=== PATIENT | male | born 1980 | race Caucasian/White ===

== ENCOUNTER → 2020-07-11 13:33 | Outpatient (BNVA) | payer MEDICARE, MEDICAID, SELFPAY | PROVIDERS: Family Provider Nurse Practitioner; PCP Nurse Practitioner; Visit Provider Nurse Practitioner | DX: E78.2 Mixed hyperlipidemia (principal); Z11.3 Encounter for screening for infections with a predominantly sexual mode of transmission; F02.80 Dementia in other diseases classified elsewhere, unspecified severity, without behavioral disturbance, psychotic disturbance, mood disturbance, and anxiety; Z11.1 Encounter for screening for respiratory tuberculosis | CPT/HCPCS: 80053; 80061; 80164; 81000; 85025; 86592 ==

== ENCOUNTER → 2021-01-19 13:32 | Outpatient (BNVA) | payer MEDICARE, MEDICAID, SELFPAY | PROVIDERS: Family Provider Nurse Practitioner; PCP Nurse Practitioner; Visit Provider Nurse Practitioner | DX: E78.2 Mixed hyperlipidemia (principal); J30.89 Other allergic rhinitis; Z79.899 Other long term (current) drug therapy | CPT/HCPCS: 80053; 80061 ==

== ENCOUNTER → 2021-07-17 13:26 | Outpatient (BNVA) | payer MEDICARE, MEDICAID, SELFPAY | PROVIDERS: Family Provider Nurse Practitioner; PCP Nurse Practitioner; Visit Provider Nurse Practitioner | DX: E78.2 Mixed hyperlipidemia (principal); Z11.3 Encounter for screening for infections with a predominantly sexual mode of transmission | CPT/HCPCS: 80053; 80061; 81000; 83721; 85025; 86580; 86592 ==

== ENCOUNTER → 2021-08-16 10:29 | Outpatient (BNVA) | payer MEDICARE, MEDICAID, SELFPAY | PROVIDERS: Family Provider Nurse Practitioner; PCP Nurse Practitioner; Visit Provider Nurse Practitioner | DX: D72.829 Elevated white blood cell count, unspecified (principal) | CPT/HCPCS: 85025 ==

== ENCOUNTER → 2022-02-14 10:48 | Outpatient (BNVA) | payer MEDICARE, MEDICAID, SELFPAY | PROVIDERS: Family Provider Nurse Practitioner; PCP Nurse Practitioner; Visit Provider Nurse Practitioner | DX: E78.2 Mixed hyperlipidemia (principal); M79.10 Myalgia, unspecified site; K52.9 Noninfective gastroenteritis and colitis, unspecified; G20 Parkinson's disease; S06.9X9S Unspecified intracranial injury with loss of consciousness of unspecified duration, sequela; F02.80 Dementia in other diseases classified elsewhere, unspecified severity, without behavioral disturbance, psychotic disturbance, mood disturbance, and anxiety; E72.20 Disorder of urea cycle metabolism, unspecified; J30.89 Other allergic rhinitis; R23.8 Other skin changes | CPT/HCPCS: 80053; 80061; 84443 ==

== ENCOUNTER 2022-02-27 13:14 | Outpatient (CLI) | payer MEDICARE, MEDICAID, SELFPAY ==
[2022-02-27 13:58] LABS: Estmated Average Glucose 91; Hemoglobin A1C 4.8 % (4.0-6.0)
[2022-02-27 14:02] LABS: Ammonia 74 umol/L (16-60)
== END 2022-02-27 13:15 | disposition home or self-care (01) ==
PROVIDERS: PCP Nurse Practitioner; Visit Provider Nurse Practitioner
DX: E72.20 Disorder of urea cycle metabolism, unspecified (principal); R73.9 Hyperglycemia, unspecified
CPT/HCPCS: 36415; 82140; 83036

== ENCOUNTER → 2022-07-16 13:38 | Outpatient (BNVA) | payer MEDICARE, MEDICAID, SELFPAY | PROVIDERS: PCP Nurse Practitioner; Visit Provider Nurse Practitioner | DX: G20 Parkinson's disease (principal); S06.9X9S Unspecified intracranial injury with loss of consciousness of unspecified duration, sequela; F02.80 Dementia in other diseases classified elsewhere, unspecified severity, without behavioral disturbance, psychotic disturbance, mood disturbance, and anxiety; E78.2 Mixed hyperlipidemia; E72.20 Disorder of urea cycle metabolism, unspecified; R46.89 Other symptoms and signs involving appearance and behavior; J30.89 Other allergic rhinitis; Z11.1 Encounter for screening for respiratory tuberculosis | CPT/HCPCS: 80053; 80061; 80164; 83721 ==

== ENCOUNTER 2022-07-27 10:34 | Outpatient (CLI) | payer MEDICARE, MEDICAID, SELFPAY ==
[2022-07-27 11:12] LABS: Ammonia 116 umol/L (16-60)
== END 2022-07-27 10:35 | disposition home or self-care (01) ==
LOC: LAB 10:36
PROVIDERS: PCP Nurse Practitioner; Visit Provider Nurse Practitioner
DX: R79.89 Other specified abnormal findings of blood chemistry (principal)
CPT/HCPCS: 36415; 82140

== ENCOUNTER 2022-10-17 14:12 | Outpatient (CLI) | payer MEDICARE, MEDICAID, SELFPAY ==
[2022-10-17 14:47] LABS: Ammonia 74 umol/L (16-60)
== END 2022-10-17 14:13 | disposition home or self-care (01) ==
LOC: LAB 14:16
PROVIDERS: PCP Nurse Practitioner; Visit Provider Nurse Practitioner
DX: E72.20 Disorder of urea cycle metabolism, unspecified (principal)
CPT/HCPCS: 36415; 82140

== ENCOUNTER 2023-01-03 15:22 | Outpatient (CLI) | payer MEDICARE, MEDICAID, SELFPAY ==
[2023-01-03 16:18] LABS: Basophils % 0.5 %; Eosinophils # 0.1 10^3/uL (0.0-0.8); Eosinophils % 1.6 %; Hematocrit 44.2 % (42.0-52.0); Hemoglobin 14.8 g/dL (11.7-16.6); Lymphocytes # 2.7 10^3/uL (0.8-4.8); Lymphocytes % 41.7 %; Mean Corpuscular HGB Conc 33.5 g/dL (30.0-36.0); Mean Corpuscular Hemoglobin 32.2 pg (28.0-34.0); Mean Corpuscular Volume 96.1 fl (80-94); Mean Platelet Volume 11.7 fL (7.4-10.4); Monocytes # 0.5 10^3/uL (0.2-0.9); Monocytes % 7.1 %; Neutrophils # 3.15 10^3/uL (1.8-7.7); Neutrophils % 48.8 %; Nucleated Red Blood Cells % 0 %; Platelet Count 191 10^3/cmm (130-400); White Blood Count 6.5 10^3/uL (4.0-10.0)
[2023-01-03 16:26] LABS: Ammonia 70 umol/L (16-60)
[2023-01-03 16:27] LABS: Alanine Aminotransferase 13 U/L (0-41); Albumin Level 4.5 g/dL (3.5-5.2); Alkaline Phosphatase 54 U/L (40-130); Anion Gap 12.5 (5-19); Aspartate Amino Transferase 25 U/L (0-40); Blood Urea Nitrogen 6 mg/dL (6-20); Calcium 9.5 mg/dL (8.5-10.5); Carbon Dioxide 27 mmol/L (22-29); Chloride 104 mmol/L (98-107); Cholesterol 204 mg/dL (0-200); Globulin 2.3 g/dL (1.3-4.6); Glomerular Filtration Rate 93.5 mL/min (90-130); Glucose 79 mg/dL (65-115); HDL Cholesterol 15 mg/dL (60-100); LDL Cholesterol Calculated 122 mg/dL (50-129); Osmolality Calculated 285 mOsm/kg (285-295); Potassium 4.5 mmol/L (3.5-5.1); Sodium 139 mmol/L (136-145); Total Bilirubin 0.3 mg/dL (0.15-1.2); Total Protein 6.8 g/dL (6.6-8.7); Triglycerides 334 mg/dL (0-150); VLDL Cholestrol Calculation 67 mg/dL (0-30)
[2023-01-03 17:59] LABS: Valproic Acid Level 68.5 ug/mL (50-100)
== END 2023-01-03 15:23 | disposition home or self-care (01) ==
PROVIDERS: PCP Nurse Practitioner; Visit Provider Nurse Practitioner
DX: E78.2 Mixed hyperlipidemia (principal); E72.20 Disorder of urea cycle metabolism, unspecified; R46.89 Other symptoms and signs involving appearance and behavior
CPT/HCPCS: 36415; 80053; 80061; 80164; 82140; 85025

== ENCOUNTER → 2023-05-23 15:25 | Outpatient (BNVA) | payer MEDICARE, MEDICAID, SELFPAY | PROVIDERS: PCP Nurse Practitioner; Visit Provider Emergency Medicine | DX: M79.641 Pain in right hand (principal) | CPT/HCPCS: 73130 ==

== ENCOUNTER 2023-05-23 16:29 | Emergency (ER) | payer MEDICARE, MEDICAID, SELFPAY ==
[2023-05-23 16:55] VITALS: BP 148/93; PULSE 86; RESP 16; TEMP 36.7; O2SAT 98; BMI 27.2
--- NOTE | 2023-05-23 17:41 | ED_ITS ---
HPI - Extremity Problem General: Chief complaint: Extremity Injury, Upper Stated complaint: right hand pain Time Seen by Provider: 05/23/23 17:39 History of Present Illness: 43-year-old male patient comes in for subluxation of the index finger of the proximal phalanx at the MCP joint of the right hand. Patient had tripped and fell caught himself with outstretched arm. Patient was seen at urgent care and was referred to the ER for reduction of the joint. Cap refill is intact. 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 Review of Systems General: Reports: 10 or more systems reviewed and unremarkable except in HPI and below Musc: Reports: extremity pain and extremity swelling PFSH ED PFSH: Medical History Aggressive behavior Current smoker Environmental and seasonal allergies Major neurocognitive disorder due to traumatic brain injury Mixed hyperlipidemia Parkinson disease Serum ammonia increased Surgical History Hx of reduction of open fracture Left arm 2000 Family History Other Dementia Diabetes Denies family history of Cancer Hypertension Social History Smoking and tobacco/nicotine status: current every day tobacco/nicotine user Second hand smoke exposure: Yes Alcohol intake: former Substance/Drug Use: former Adopted: No Caregiver/support person: Yes Lives independently: No Household members: caregiver Housing: House Marital status: Single Number of children: 1 Number of grandchildren: 0 service: No Current occupational status: disabled Do you think of yourself as: Straight/Heterosexual Current gender identity: Male Financial difficulty paying for basics: Not Very Hard Physical Exam Const: COMMON NORMALS: alert HENMT: COMMON NORMALS: normocephalic HEAD & SCALP: normocephalic THROAT: posterior oropharynx normal Neck/C-Spine: COMMON NORMALS: full ROM Resp: COMMON NORMALS: normal respiratory effort and clear to auscultation bi laterally AUSCULTATION: clear to auscultation bilaterally Cardio: COMMON NORMALS: regular rate and regular rhythm RATE: regular rate RHYTHM: regular rhythm Extremity: RIGHT UPPER EXTREMITY: Yes hand & digits (Subluxed proximal phalanx index finger MCP joint) Right hand and digits: Yes inspection, Yes palpation, Yes ROM exam and Yes neurovascular exam Neuro: SENSORIUM/ORIENTATION: Yes alert Skin: COMMON NORMALS: turgor normal GENERAL SKIN EXAM: turgor normal Procedures Nerve Block Nerve Block 1: Local Anesthetic: lidocaine 1% and with epi Amount of anesthesia used (mL): 6 Side: right Nerve Blocks: digital Procedure Successful: Yes Patient Tolerated Procedure: well Complications: none Orthopedic Joint Reduction Joint #1: Side: right Joint Reduction Location: other (mcp index finger, proximal phalanx) Analgesia: nerve block Local Anesthesia: lidocaine 1% and with epi Amount of anesthesic used (mL): 6 Technique used: traction/counter-traction and direct manipulation Post-reduction neuro exam: intact Post-reduction vascular: intact Post Reduction X-Ray Obtained: Yes Post Reduction X-Ray Results: reduced Patient Tolerated Procedure: well Additional Comments: After my failed attempt to reduce the joint, I requested Dr. Liz to assist and we were able to reduce the joint showing reduction in the post x-ray. Course Vital Signs: Vital signs: Vital Signs Temperature 98.0 F 05/23/23 16:55 Pulse Rate 86 05/23/23 16:55 Respiratory Rate 16 05/23/23 16:55 Blood Pressure 148/93 05/23/23 16:55 Pulse Oximetry 98 05/23/23 16:55 Oxygen Delivery Me thod Room Air 05/23/23 16:55 MDM - Extremity (Nontraumatic) Medical Decision Making 43-year-old male patient comes in today for complaints of of subluxation of a proximal phalanx and MCP joint of the right hand index finger. On exam patient had prompt capillary refill and sensation distally. Review of the record noted a x-ray that showed subluxation of the MCP joint right index finger. Differential diagnosis includes fracture, chronic subluxation versus acute subluxation, sprain, contusion. Under digital block subluxation was reduced to normal alignment. Dr. Liz was consulted to assist with the reduction. Lab Data Radiology Impressions Hand X-Ray 05/23/23 18:13 IMPRESSION: Successful reduction of the dislocation at the 2nd MCP. All radiology interpretation(s) finalized by discharge Discharge Plan Discharge Patient Disposition: Home Clinical Impression: Subluxation of right index finger Qualifiers: Encounter type: initial encounter Qualified Code(s): S63.200A - Unspecified subluxation of right index finger, initial encounter Condition: Stable Prescriptions: No Action acetaminophen [Tylenol] 325 mg tablet 325 mg PO Q4H Qty: 30 5RF Rx Instructions: as needed for pain or fever>100.0. Pepto-Bismol 262 mg tablet 524 mg PO QID PRN (Reason: diarrhea) Qty: 30 5RF carbidopa-levodopa [Sinemet] 25-100 mg tablet 1 tab PO BID Qty: 60 5RF Robitussin Cough-Chest Frandy DM 5-100 mg/5 mL liquid 10 ml PO Q6H PRN (Reason: cough) Qty: 118 5RF divalproex [Depakote ER] 500 mg tablet extended release 24 hr 1,500 mg PO .at bedtime Qty: 90 5RF ibuprofen 600 mg tablet 600 mg PO Q6H Qty: 30 5RF Rx Instructions: as needed for pain loratadine 10 mg tablet 10 mg PO DAILY Qty: 30 5RF mometasone 50 mcg/actuation spray,non-aerosol 2 spray intranasal DAILY PRN (Reason: allergy symptoms) Qty: 17 5RF Rx Instructions: administer into each nostril Triple Antibiotic 3.5mg-400 unit- 5,000 unit/gram ointment 1 applic topical TID PRN (Reason: skin irritation) Qty: 14 5RF sertraline [Zoloft] 100 mg tablet 100 mg PO DAILY Qty: 30 5RF olanzapine [Zyprexa] 5 mg tablet 5 mg PO .at bedtime Qty: 30 5RF fenofibrate nanocrystallized [Tricor] 145 mg tablet 145 mg PO DAILY Qty: 30 5RF L-Carnitine 500 mg tablet 500 mg PO DAILY Qty: 30 5RF Rx Instructions: must administer with a meal/food lactulose 10 gram/15 mL solution 40 g PO BID 30 Days Qty: 3600 2RF trazodone 150 mg tablet 150 mg PO .hs Qty: 30 1RF Discharge Orders: Discharge ED (Routine); Ordered 05/23/23 Ordered By: Philippe Thomas Referrals: Jamilah Garcia, HOSPICE MASSAGE THERAPIST[facility] [Primary Care Provider] - Discharge Diet: Usual diet Discharge Activity: Increase activity as tolerated Patient Instructions: Finger Dislocation (ED) Activity Restrictions/Additional Instructions: Follow-up as needed. Coding Level of Care Code ED Siding Installer for Stephon Munson
--- NOTE | 2023-05-23 17:49 | XRR_ITS ---
PROCEDURE INFORMATION: Exam: XR Right Hand Exam date and time: 05/23/2023 5:52 PM Age: 43 years old Clinical indication: Injury or trauma; Fall; Other: Bruised; Additional info: Post reduction mcp 2nd digit TECHNIQUE: Imaging protocol: Radiologic exam of the right hand. Views: 3 or more views. COMPARISON: No relevant prior studies available. FINDINGS: Bones/joints: Persistent dislocation of the 2nd digit at the MCP joint. Soft tissues: Normal. XR/XR hand RT min 3V* [id number] IMPRESSION: Persistent dislocation of the 2nd digit at the MCP joint.
--- NOTE | 2023-05-23 18:13 | XRR_ITS ---
PROCEDURE INFORMATION: Exam: XR Right Hand Exam date and time: 05/23/2023 6:50 PM Age: 43 years old Clinical indication: Injury or trauma; Fall; Other: Post reduction TECHNIQUE: Imaging protocol: Radiologic exam of the right hand. Views: 1 or 2 views. COMPARISON: CR ( EX, ) 05/23/2023 5:52 PM FINDINGS: Bones/joints: Successful reduction of the dislocation at the 2nd MCP. Soft tissues: Normal. XR/XR hand RT 2V [id number] IMPRESSION: Successful reduction of the dislocation at the 2nd MCP.
== END 2023-05-23 19:01 | disposition home or self-care (01) ==
PROVIDERS: Emergency Provider Nurse Practitioner Family; PCP Nurse Practitioner
DX: S63.200A Unspecified subluxation of right index finger, initial encounter (principal); F17.210 Nicotine dependence, cigarettes, uncomplicated; E78.2 Mixed hyperlipidemia; W01.0XXA Fall on same level from slipping, tripping and stumbling without subsequent striking against object, initial encounter; M79.641 Pain in right hand
CPT/HCPCS: 26700; 73120; 73130; 99284

== ENCOUNTER 2023-06-26 16:06 | Outpatient (CLI) | payer MEDICARE, MEDICAID, SELFPAY ==
[2023-06-26 16:31] LABS: Add Urine Microscopic? NO; Charge for UA Resulting for Rev
[2023-06-26 16:37] LABS: Bilirubin Urine Neg (Negative); Blood Urine Neg (Negative); Glucose Urine UA Norm (Normal); Ketones Urine 1+ (Negative); Leukocyte Esterase Urine Negative (Negative); Nitrate Urine Negative (Negative); Protein Urine Neg (Negative); Urine Appearance Clear (CLEAR); Urine Color Yellow (Yellow); Urobilinogen Urine Norm (Negative); pH Urine 6 (5-7)
[2023-06-26 16:45] LABS: Basophils % 0.5 %; Eosinophils # 0.1 10^3/uL (0.0-0.8); Eosinophils % 0.8 %; Hematocrit 45.6 % (37-53); Lymphocytes # 3.4 10^3/uL (0.8-4.8); Lymphocytes % 39.9 %; Mean Corpuscular HGB Conc 33.3 g/dL (30-55); Mean Corpuscular Hemoglobin 31.5 pg (27-33); Mean Corpuscular Volume 94.6 fl (82-101); Mean Platelet Volume 11.1 fL (7.4-10.4); Monocytes # 0.6 10^3/uL (0.2-0.9); Monocytes % 7.2 %; Neutrophils # 4.35 10^3/uL (1.8-7.7); Neutrophils % 51.2 %; Nucleated Red Blood Cells % 0 %; Platelet Count 199 10^3/cmm (157-399); Red Blood Count 4.82 10^6/uL (3.85-5.65); Red Cell Distribution Width 12.3 % (12.1-15.1); White Blood Count 8.49 10^3/uL (3.29-11.43)
[2023-06-26 16:58] LABS: Ammonia 48 umol/L (16-60)
[2023-06-26 16:59] LABS: Valproic Acid Level 64.8 ug/mL (50-100)
[2023-06-26 17:17] LABS: Alanine Aminotransferase 29 U/L (0-41); Albumin Level 4.7 g/dL (3.5-5.2); Alkaline Phosphatase 57 U/L (40-130); Anion Gap 13.4 (5-19); Aspartate Amino Transferase 27 U/L (0-40); Blood Urea Nitrogen 11 mg/dL (6-20); Calcium 9.6 mg/dL (8.5-10.5); Carbon Dioxide 28 mmol/L (22-29); Chloride 103 mmol/L (98-107); Chol HDL Ratio 11.09 mg/dL (1.0-5.00); Cholesterol 244 mg/dL (0-200); Globulin 2.6 g/dL (1.3-4.6); Glucose 73 mg/dL (65-115); HDL Cholesterol 22 mg/dL (60-100); Osmolality Calculated 288 mOsm/kg (285-295); Potassium 4.4 mmol/L (3.5-5.1); Sodium 140 mmol/L (136-145); Thyroid Stimulating Hormone 2.48 uIU/mL (0.27-4.20); Total Bilirubin 0.2 mg/dL (0.15-1.2); Total Protein 7.3 g/dL (6.6-8.7); Triglycerides 465 mg/dL (0-150); VLDL Cholestrol Calculation 93 mg/dL (0-30)
[2023-06-26 19:00] LABS: LDL Cholesterol Direct 156 mg/dL (0-100)
== END 2023-06-26 16:07 | disposition home or self-care (01) ==
LOC: LAB 16:10
PROVIDERS: PCP Nurse Practitioner; Visit Provider Nurse Practitioner
DX: E72.20 Disorder of urea cycle metabolism, unspecified (principal); E78.2 Mixed hyperlipidemia; G20.A1 Parkinson's disease without dyskinesia, without mention of fluctuations
CPT/HCPCS: 36415; 80053; 80061; 80164; 81003; 82140; 83721; 84443; 85025

== ENCOUNTER 2023-12-13 09:07 | Outpatient (CLI) | payer MEDICARE, MEDICAID, SELFPAY ==
[2023-12-13 09:38] LABS: Ammonia 76 umol/L (16-60)
[2023-12-13 09:39] LABS: Alanine Aminotransferase 23 U/L (0-41); Albumin Level 4.5 g/dL (3.5-5.2); Alkaline Phosphatase 51 U/L (40-130); Anion Gap 13.9 (5-19); Aspartate Amino Transferase 19 U/L (0-40); Blood Urea Nitrogen 7 mg/dL (6-20); Calcium 9.3 mg/dL (8.5-10.5); Carbon Dioxide 28 mmol/L (22-29); Chloride 104 mmol/L (98-107); Chol HDL Ratio 8.91 mg/dL (1.0-5.00); Cholesterol 205 mg/dL (0-200); Globulin 2.8 g/dL (1.3-4.6); Glomerular Filtration Rate 82.3 mL/min (90-130); Glucose 116 mg/dL (65-115); HDL Cholesterol 23 mg/dL (60-100); LDL Cholesterol Calculated 123 mg/dL (50-129); Osmolality Calculated 293 mOsm/kg (285-295); Potassium 3.9 mmol/L (3.5-5.1); Sodium 142 mmol/L (136-145); Total Bilirubin 0.2 mg/dL (0.15-1.2); Total Protein 7.3 g/dL (6.6-8.7); Triglycerides 295 mg/dL (0-150); VLDL Cholestrol Calculation 59 mg/dL (0-30)
== END 2023-12-13 09:08 | disposition home or self-care (01) ==
LOC: LAB 09:07
PROVIDERS: PCP Nurse Practitioner; Visit Provider Nurse Practitioner
DX: E78.2 Mixed hyperlipidemia (principal); E72.20 Disorder of urea cycle metabolism, unspecified
CPT/HCPCS: 80053; 80061; 82140

== ENCOUNTER 2024-06-01 13:47 | Outpatient (CLI) | payer MEDICARE, MEDICAID, SELFPAY ==
[2024-06-01 14:17] LABS: Basophils % 0.4 %; Eosinophils # 0.1 10^3/uL (0.0-0.8); Eosinophils % 1.6 %; Hematocrit 46.7 % (37-53); Lymphocytes # 3.7 10^3/uL (0.8-4.8); Lymphocytes % 52.8 %; Mean Corpuscular Hemoglobin 30.3 pg (27-33); Mean Corpuscular Volume 91.7 fl (82-101); Mean Platelet Volume 11.2 fL (7.4-10.4); Monocytes # 0.4 10^3/uL (0.2-0.9); Monocytes % 5.8 %; Neutrophils # 2.71 10^3/uL (1.8-7.7); Neutrophils % 38.7 %; Nucleated Red Blood Cells % 0 %; Platelet Count 230 10^3/cmm (157-399); Red Blood Count 5.09 10^6/uL (3.85-5.65); Red Cell Distribution Width 12.7 % (12.1-15.1); White Blood Count 7.02 10^3/uL (3.29-11.43)
[2024-06-01 14:40] LABS: Estmated Average Glucose 97
[2024-06-01 14:42] LABS: Ammonia 76 umol/L (16-60)
[2024-06-01 14:47] LABS: Alanine Aminotransferase 17 U/L (0-41); Albumin Level 4.8 g/dL (3.5-5.2); Alkaline Phosphatase 56 U/L (40-130); Anion Gap 15.3 (5-19); Aspartate Amino Transferase 27 U/L (0-40); Blood Urea Nitrogen 11 mg/dL (6-20); Calcium 9.5 mg/dL (8.5-10.5); Carbon Dioxide 26 mmol/L (22-29); Chloride 107 mmol/L (98-107); Chol HDL Ratio 18.69 mg/dL (1.0-5.00); Cholesterol 243 mg/dL (0-200); Globulin 2.7 g/dL (1.3-4.6); Glomerular Filtration Rate 81.9 mL/min (90-130); Glucose 105 mg/dL (65-115); HDL Cholesterol 13 mg/dL (60-100); Osmolality Calculated 298 mOsm/kg (285-295); Potassium 4.3 mmol/L (3.5-5.1); Sodium 144 mmol/L (136-145); Thyroid Stimulating Hormone 2.64 uIU/mL (0.27-4.20); Total Bilirubin 0.3 mg/dL (0.15-1.2); Total Protein 7.5 g/dL (6.6-8.7); Triglycerides 429 mg/dL (0-150); VLDL Cholestrol Calculation 86 mg/dL (0-30)
[2024-06-01 15:18] LABS: LDL Cholesterol Direct 166 mg/dL (0-100)
== END 2024-06-01 13:48 | disposition home or self-care (01) ==
LOC: LAB 13:49
PROVIDERS: PCP Nurse Practitioner; Visit Provider Nurse Practitioner
DX: E78.2 Mixed hyperlipidemia (principal); R73.9 Hyperglycemia, unspecified; E72.20 Disorder of urea cycle metabolism, unspecified
CPT/HCPCS: 36415; 80053; 80061; 82140; 83036; 83721; 84443; 85025

== ENCOUNTER 2024-10-30 14:31 | Outpatient (CLI) | payer MEDICARE, MEDICAID, SELFPAY ==
[2024-10-30 14:58] LABS: Basophils # 0.1 10^3/uL (0.0-0.1); Basophils % 0.8 %; Eosinophils # 0.1 10^3/uL (0.0-0.8); Eosinophils % 0.8 %; Hematocrit 44.2 % (37-53); Lymphocytes # 2.8 10^3/uL (0.8-4.8); Lymphocytes % 37.2 %; Mean Corpuscular HGB Conc 33.7 g/dL (30-55); Mean Corpuscular Hemoglobin 30.9 pg (27-33); Mean Corpuscular Volume 91.7 fl (82-101); Mean Platelet Volume 11.7 fL (7.4-10.4); Monocytes # 0.5 10^3/uL (0.2-0.9); Neutrophils # 4.19 10^3/uL (1.8-7.7); Neutrophils % 54.9 %; Nucleated Red Blood Cells % 0 %; Platelet Count 186 10^3/cmm (157-399); Red Blood Count 4.82 10^6/uL (3.85-5.65); Red Cell Distribution Width 12.8 % (12.1-15.1); White Blood Count 7.63 10^3/uL (3.29-11.43)
[2024-10-30 15:14] LABS: Ammonia 58 umol/L (16-60)
[2024-10-30 15:30] LABS: Alanine Aminotransferase 44 U/L (0-41); Albumin Level 4.6 g/dL (3.5-5.2); Alkaline Phosphatase 49 U/L (40-130); Anion Gap 15.3 (5-19); Aspartate Amino Transferase 39 U/L (0-40); Blood Urea Nitrogen 8 mg/dL (6-20); Carbon Dioxide 26 mmol/L (22-29); Chloride 102 mmol/L (98-107); Chol HDL Ratio 7.15 mg/dL (1.0-5.00); Cholesterol 193 mg/dL (0-200); Globulin 2.7 g/dL (1.3-4.6); Glomerular Filtration Rate 81.9 mL/min (90-130); Glucose 106 mg/dL (65-115); HDL Cholesterol 27 mg/dL (60-100); LDL Cholesterol Calculated 115 mg/dL (50-129); Osmolality Calculated 287 mOsm/kg (285-295); Potassium 4.3 mmol/L (3.5-5.1); Sodium 139 mmol/L (136-145); Thyroid Stimulating Hormone 1.65 uIU/mL (0.27-4.20); Total Bilirubin 0.3 mg/dL (0.15-1.2); Total Protein 7.3 g/dL (6.6-8.7); Triglycerides 257 mg/dL (0-150); VLDL Cholestrol Calculation 51 mg/dL (0-30)
== END 2024-10-30 14:32 | disposition home or self-care (01) ==
LOC: LAB 14:33
PROVIDERS: PCP Nurse Practitioner; Visit Provider Nurse Practitioner
DX: E78.2 Mixed hyperlipidemia (principal); E72.20 Disorder of urea cycle metabolism, unspecified
CPT/HCPCS: 36415; 80053; 80061; 82140; 84443; 85025

== ENCOUNTER → 2025-04-22 15:47 | Outpatient (BNVA) | payer MEDICARE, MEDICAID, SELFPAY | PROVIDERS: PCP Nurse Practitioner; Visit Provider Nurse Practitioner | DX: E78.2 Mixed hyperlipidemia (principal); E72.20 Disorder of urea cycle metabolism, unspecified | CPT/HCPCS: 81000 ==

== ENCOUNTER 2025-04-30 13:45 | Outpatient (CLI) | payer MEDICARE, MEDICAID, SELFPAY ==
[2025-04-30 14:19] LABS: Hematocrit 44.6 % (37-53); Hemoglobin 15.30 g/dL (11.27-16.99); Mean Corpuscular HGB Conc 34.3 g/dL (30-55); Mean Corpuscular Hemoglobin 30.9 pg (27-33); Mean Corpuscular Volume 90.1 fl (82-101); Nucleated Red Blood Cells % 0 %; Platelet Count 176 10^3/cmm (157-399); Red Blood Count 4.95 10^6/uL (3.85-5.65); White Blood Count 8.68 10^3/uL (3.29-11.43)
[2025-04-30 14:33] LABS: Ammonia 61 umol/L (16-60)
[2025-04-30 14:43] LABS: Alanine Aminotransferase 13 U/L (0-41); Albumin Level 4.7 g/dL (3.5-5.2); Alkaline Phosphatase 56 U/L (40-130); Anion Gap 16.1 (5-19); Aspartate Amino Transferase 21 U/L (0-40); Blood Urea Nitrogen 10 mg/dL (6-20); Calcium 9.5 mg/dL (8.5-10.5); Carbon Dioxide 24 mmol/L (22-29); Chloride 105 mmol/L (98-107); Globulin 2.8 g/dL (1.3-4.6); Glucose 104 mg/dL (65-115); Osmolality Calculated 291 mOsm/kg (285-295); Potassium 4.1 mmol/L (3.5-5.1); Sodium 141 mmol/L (136-145); Total Protein 7.5 g/dL (6.6-8.7)
== END 2025-04-30 13:46 | disposition home or self-care (01) ==
LOC: LAB 13:48
PROVIDERS: PCP Nurse Practitioner; Visit Provider Nurse Practitioner
DX: E78.2 Mixed hyperlipidemia (principal); E72.20 Disorder of urea cycle metabolism, unspecified
CPT/HCPCS: 36415; 80053; 82140; 82248; 85025